=== PATIENT | male | born 1985 | race Caucasian/White ===

== ENCOUNTER 2024-09-09 10:19 | Emergency (ER) | payer SELFPAY ==
--- NOTE | 2024-09-09 10:22 | ED.GENADULT ---
HPI - General Adult General Chief complaint: Recheck/Abnormal Lab/Rx Stated complaint: high blood pressure Time Seen by Provider: 09/09/24 10:22 Source: patient and RN notes reviewed Mode of arrival: ambulatory Limitations: no limitations History of Present Illness HPI narrative: Patient is a 39-year-old male who presents to the [facility] with request for medication refill. Patient reports history of hypertension. Patient states that he takes amlodipine 5 mg daily. He has been out of this medication for the past few days. he denies any symptoms associated with hypertension. Denies chest pain or shortness breath. Denies headache, dizziness, lightheadedness, weakness. He is alert and x4 no obvious neurological deficits. He states that he is making his way to [place] and has not followed up with his primary care physician. He was requesting a medication refill in hopes to having the medication to make it through his trip until he is able to establish care in [place]. Related Data Home Medications ?Medication ?Instructions ?Recorded ?Confirmed ?Last Taken ?Type amlodipine 5 mg tablet mg 09/09/24 Unknown History Allergies Allergy/AdvReac Type Severity Reaction Status Date / Time No Known Allergies Allergy Verified 09/09/24 10:29 Review of Systems Review of Systems: CONSTITUTIONAL: Denies fever, chills, or sweats. EYES: Denies visual changes, redness, or discharge. ENT: Denies otalgia and sore throat CARDIOVASCULAR: Denies chest pain, palpitations, or edema. RESPIRATORY: Denies cough or dyspnea. GASTROINTESTINAL: Denies abdominal pain, nausea, vomiting, or diarrhea. GENITOURINARY: Denies dysuria or hematuria. SKIN: Denies rash or itching. MUSCULOSKELETAL: Denies back pain, joint pain, or myalgia. NEUROLOGIC: Denies headache, numbness, or weakness. Pertinent positives per HPI. PMFSH Comments At the time of my signature, I reviewed and agree with the nursing past medical, surgical, social, and family history. There is no relevant family history pertinent to the patient complaint. Exam Narrative: GENERAL: This is a well-nourished, well-developed patient, in no apparent distress. HEAD: normocephalic, atraumatic. EYES: PERRL. Sclera clear/white. Vision is grossly intact. EARS: External ears normal, auditory canals clear and without drainage, TMs normal without perforation. Hearing grossly intact. NOSE: External nose normal with no obvious nasal discharge, nares without redness, no rhinorrhea. THROAT: Mucous membranes moist, posterior pharynx clear. NECK: Neck supple, non-tender without lymphadenopathy, masses or thyromegaly. CARDIOVASCULAR: Regular rate and rhythm without murmurs, gallops, or rubs. RESPIRATORY: Clear to auscultation. Breath sounds equal bilaterally. No wheezes, rales, or rhonchi. GASTROINTESTINAL: Abdomen soft, non-tender, nondistended. Bowel sounds are active. No hepato-splenomegaly, or palpable masses. No guarding. SKIN: warm, intact with no suspicious lesions or rash, good texture and turgor. NEURO: awake, alert, and oriented to person, place and time. There were no obvious focal neurologic abnormalities. EXTREMITIES: No clubbing, cyanosis, or edema. No joint tenderness, effusion, or edema noted. BACK: Nontender without deformity or crepitance. No flank tenderness. Course Course Level of Care: Express [facility] Visit Vital Signs Vital signs: Vital Signs Temperature 98.2 F 09/09/24 10:29 Pulse Rate 82 09/09/24 10:29 Respiratory Rate 18 09/09/24 10:29 Blood Pressure 182/111 H 09/09/24 10:29 Pulse Oximetry 98 09/09/24 10:29 Oxygen Delivery Room Air 09/09/24 10:29 Temperature 98.2 F 09/09/24 10:29 Pulse Rate 82 09/09/24 10:29 Respiratory Rate 18 09/09/24 10:29 Blood Pressure 182/111 H 09/09/24 10:29 Pulse Oximetry 98 09/09/24 10:29 Oxygen Delivery Room Air 09/09/24 10:29 Reviewed Medical Decision Making MDM Narrative Medical decision making narrative: Patient has been out of his amlodipine for couple days. His blood pressure is noted to be elevated upon [facility] arrival. He is asymptomatic. We will provide refill at this time for a short course so he is able to get established with a primary care physician at his destination. Advised to take the medication as instructed. Differential Diagnosis Differential Diagnosis: well exam, medication refill, hypertension Vital Signs Vital Signs: Vital Signs Temperature 98.2 F 09/09/24 10:29 Pulse Rate 82 09/09/24 10:29 Respiratory Rate 18 09/09/24 10:29 Blood Pressure 182/111 H 09/09/24 10:29 Pulse Oximetry 98 09/09/24 10:29 Oxygen Delivery Room Air 09/09/24 10:29 Temperature 98.2 F 09/09/24 10:29 Pulse Rate 82 09/09/24 10:29 Respiratory Rate 18 09/09/24 10:29 Blood Pressure 182/111 H 09/09/24 10:29 Pulse Oximetry 98 09/09/24 10:29 Oxygen Delivery Room Air 09/09/24 10:29 Critical Care Time Critical Care Time Critical Care Time: No Discharge Plan Discharge Clinical Impression: Encounter for medication refill Patient Disposition: Home Condition: Stable Instructions: Hypertension (ED) Additional Instructions: Please follow-up with primary care physician as soon as possible. Patient Language: [place] Island[place] Prescriptions: New amlodipine 5 mg tablet 5 mg PO DAILY Qty: 60 0RF No Action amlodipine 5 mg tablet Follow-up/Referrals: UNKNOWN,DOCTOR [Non-Staff] - Time of Disposition: 10:36
[2024-09-09 10:29] VITALS: BP 182/111; PULSE 82; RESP 18; TEMP 36.8; O2SAT 98
== END 2024-09-09 10:39 | disposition home or self-care (01) ==
PROVIDERS: Emergency Provider Nurse Practitioner; Referring Provider Emergency Medicine
DX: Z76.0 Encounter for issue of repeat prescription (principal); I10 Essential (primary) hypertension
CPT/HCPCS: 99202; G0463